=== PATIENT | female | born 1980 | race African-American/Black ===

== ENCOUNTER 2017-01-14 15:33 | Emergency (ER) | payer SELFPAY ==
[~2017-01-14] VITALS: Ht 152.4 cm; Wt 92.1 kg
[2017-01-14] MEDS ORDERED: ONDANSETRON ODT 4 MG TAB PO ONE (15:45)
[2017-01-14 16:39] LABS: BUN/Creatinine Ratio 6.3; Calcium 8.5 mg/dL (8.5-10.1); Potassium 3.3 mmol/L (3.5-5.1)
[2017-01-14 16:42] LABS: Bilirubin, Total 0.2 mg/dL (0.2-1.0); Total Protein 7.4 g/dL (6.4-8.2)
[2017-01-14 17:36] LABS: Basophils # (auto) 0.1 uL; Basophils % (auto) 0.7 % (0.0-2.0); Eosinophils # (auto) 0.1 uL; Eosinophils % (auto) 1.3 % (0.0-7.0); Hematocrit 29.8 % (36.0-46.0); Hemoglobin 9.9 g/dL (12.2-16.2); Lymphocytes # (auto) 1.9 uL; Lymphocytes % (auto) 22.1 % (10.0-50.0); Mean Corpuscular Hemoglobin 27.8 pg (28.0-32.0); Mean Corpuscular Hgb Conc. 33.2 g/dL (32.0-36.0); Mean Corpuscular Volume 83.5 fL (80.0-100.0); Mean Platelet Volume 6.8 fL (6.9-10.8); Monocytes # (auto) 0.8 uL; Monocytes % (auto) 8.6 % (0.0-12.0); Neutrophils # (auto) 5.9 uL; Neutrophils % (auto) 67.3 % (37.0-80.0); Nucleated Red Blood Cells % 0.1 %; Platelet Count (auto) 416 10^3/uL (140-450); Red Cell Distribution Width 17.3 % (11.8-14.3); White Blood Cell 8.8 10^3/uL (4.4-10.8)
[2017-01-14] MEDS ORDERED: HYDROcodone-ACET 5/325MG TAB PO ONE (21:15)
[2017-01-14 21:17] LABS: Urine Bilirubin Negative (Negative); Urine Blood 2+ /uL (Negative); Urine Color PINK (Yellow); Urine Glucose Normal (Normal); Urine Ketone Negative (Negative); Urine Mucus FEW (None Seen); Urine Nitrite Negative (Negative); Urine RBC 1545 /hpf (0 - 4); Urine Squamous Epithelial Cell FEW /hpf (<5); Urine Urobilinogen Normal (Negative)
[2017-01-15 05:33] VITALS: BP 116/54
== END 2017-01-15 04:58 | disposition home or self-care (01) ==
LOC: ER 15:40
DX: O03.9 Complete or unspecified spontaneous abortion without complication (principal); Z3A.00 Weeks of gestation of pregnancy not specified
CPT/HCPCS: 36415; 76801; 76817; 80053; 81001; 84702; 85025; 99285; Q0162

== ENCOUNTER 2017-01-16 00:02 | Emergency (ER) | payer SELFPAY ==
[~2017-01-16] VITALS: Ht 152.4 cm; Wt 91.6 kg
[2017-01-16 01:00] LABS: Basophils # (auto) 0 uL; Basophils % (auto) 0.3 % (0.0-2.0); Eosinophils # (auto) 0.1 uL; Eosinophils % (auto) 0.6 % (0.0-7.0); Hematocrit 26.3 % (36.0-46.0); Hemoglobin 8.9 g/dL (12.2-16.2); Lymphocytes # (auto) 1.6 uL; Lymphocytes % (auto) 16.6 % (10.0-50.0); Mean Corpuscular Hemoglobin 28.4 pg (28.0-32.0); Mean Corpuscular Hgb Conc. 33.8 g/dL (32.0-36.0); Mean Platelet Volume 6.5 fL (6.9-10.8); Monocytes # (auto) 0.5 uL; Monocytes % (auto) 5.1 % (0.0-12.0); Neutrophils # (auto) 7.4 uL; Neutrophils % (auto) 77.4 % (37.0-80.0); Platelet Count (auto) 386 10^3/uL (140-450); Red Cell Distribution Width 16.6 % (11.8-14.3); White Blood Cell 9.5 10^3/uL (4.4-10.8)
[2017-01-16 01:08] LABS: Albumin 2.9 g/dL (3.4-5.0); BUN/Creatinine Ratio 9.3; Calcium 8.7 mg/dL (8.5-10.1); Potassium 3.3 mmol/L (3.5-5.1)
[2017-01-16 01:11] LABS: Bilirubin, Total 0.2 mg/dL (0.2-1.0); Total Protein 7.1 g/dL (6.4-8.2)
[2017-01-16] MEDS ORDERED: METHYLERGONOVINE MALEATE 0.2 MG/ML AMP IM ONE (02:15)
[2017-01-16] MEDS ORDERED: HYDROcodone-ACET 10/325MG TAB PO ONE (02:15)
[2017-01-16] MEDS ORDERED: ONDANSETRON ODT 4 MG TAB PO ONE (02:30)
[2017-01-16 02:48] VITALS: BP 105/56
== END 2017-01-16 03:15 | disposition home or self-care (01) ==
LOC: ER 00:03
DX: O03.9 Complete or unspecified spontaneous abortion without complication (principal); Z88.8 Allergy status to other drugs, medicaments and biological substances
CPT/HCPCS: 36415; 80053; 84702; 85025; 86850; 86900; 86901; 99284; J2210; Q0162